=== PATIENT | female | born 1955 | race Caucasian/White ===

== ENCOUNTER → 2017-03-31 | Outpatient (CLI) | payer OTHER | LOC: BMCIMAGING 12:50 | PROVIDERS: ATTEND Internal Medicine | DX: Z12.31 Encounter for screening mammogram for malignant neoplasm of breast (principal) | CPT/HCPCS: G0202 ==

== ENCOUNTER 2017-04-30 11:27 | Emergency (ER) | payer OTHER ==
[2017-04-30 11:32] VITALS: TEMP 98.2
[2017-04-30] MEDS ORDERED: ONDANSETRON 4 MG/2 ML VIAL ONE (11:43)
--- NOTE | 2017-04-30 14:10 | EDPHY ---
General Narrative: CHIEF COMPLAINT: Foot swelling HISTORY OF PRESENT ILLNESS: Patient complains of 2 days history of pain at the base of the right toe and into the right great toe. This is sudden onset. Woke her from sleep. Constant duration. Moderate to severe by rest. Severe when she attempts to ambulate. Some improvement with tramadol that she had from previous prescription. Minimal improved with ibuprofen. No fever chills. No swelling of the entire foot. No swelling of the right ankle or calf. No redness of the right ankle or calf. No fever chills. No recent travel or surgery. No history of venous thrombolic event. She contacted her primary care physician, and they recommend that she present to the emergency department. REVIEW OF SYSTEMS: Ten systems reviewed and are negative unless otherwise noted in the HPI PAST MEDICAL HISTORY: Depression PAST SURGICAL HISTORY: None SOCIAL HISTORY: Nonsmoker. FAMILY HISTORY: Noncontributory EXAMINATION General Appearance: Alert, no distress Head: normocephalic, atraumatic Eyes: Pupils equal and round, no conjunctival pallor or injection ENT, Mouth: Mucous membranes moist Neck: Normal inspection, supple, non-tender Respiratory: Lungs are clear to auscultation. No wheezing rhonchi or crackles Cardiovascular: Regular rate and rhythm. No murmur. Pulses intact distally in symmetrically. Neurological: A&O, nonfocal, antalgic but normal gait. Strength is symmetric in all 4 limbs. Skin: Warm and dry, no rash. No erythema or cellulitis. No petechiae or purpura Extremities: Point tenderness at the base of the right great toe and into the MTP joint. There is some erythema and edema about the joint. No surrounding erythema or cellulitis. Range of motion is intact. No pain with passive dorsiflexion of the extremity. No edema of the right calf or leg. No asymmetry of the lower extremities. No evidence of DVT. Psychiatric: Mood and affect normal DIFFERENTIAL DIAGNOSES: Including but not limited to gout, metatarsalgia, arthralgia, sprain, DVT MDM: 2:05 p.m. Swelling and pain of the right MTP joint and toe. This is isolated to the right great toe MTP joint. No erythema of the foot or calf. No edema of the foot or calf. No evidence of DVT by examination or history. Treat symptomatic with medications as prescribed. Follow up with primary care physician for further care and testing. ER precautions discussed. Specifically return to ER for any redness, swelling or pain of the foot, ankle or calf. She is comfortable this plan and discharged home stable condition. - Diagnostics Imaging Results: Imaging Impressions Foot X-Ray 04/30/17 11:39 Impression: Negative. No fracture, arthropathy or bone lesion. - History Smoking Status: Never smoked - Objective Vital Signs: Initial Vital Signs Temperature (C) 98.2 F 04/30/17 11:29 Heart Rate 93 04/30/17 11:29 Respiratory Rate 18 04/30/17 11:29 Blood Pressure 157/93 H 04/30/17 11:29 O2 Sat (%) 96 04/30/17 11:29 O2 Delivery Mode Room Air Allergies/Adverse Reactions: No Known Allergies Allergy (Unverified 12/12/09 16:24) Home Medications: Medication Instructions Recorded Wellbutrin 12/12/09 Colchicine 0.6 mg PO AD #3 tablet 04/30/17 Hydrocodone/APAP 5/325 [[place] 1 - 2 tab PO Q4H PRN #10 tab 04/30/17 5/325 (*)] Indomethacin 75 mg PO DAILY #7 capsule.er 04/30/17 Departure - Departure Disposition: Home, Routine, Self-Care Clinical Impression: Pain of right great toe, Metatarsalgia of right foot Condition: Good Instructions: Low Purine Diet (ED), Gout (ED) Additional Instructions: 1. Weightbearing as tolerated 2. Medications as prescribed as needed 3. Follow up with primary care physician Referrals: Selma Patiño MD [Primary Care Provider] - As per Instructions Prescriptions: Colchicine 0.6 mg PO AD #3 tablet Hydrocodone/APAP 5/325 [[place] 5/325 (*)] 1 - 2 tab PO Q4H PRN #10 tab PRN Reason: Pain, Moderate Indomethacin 75 mg PO DAILY #7 capsule.er
[2017-04-30 14:46] VITALS: BP 126/77; PULSE 70; RESP 14; O2SAT 97
== END 2017-04-30 14:45 | disposition home or self-care (01) ==
DX: M77.41 Metatarsalgia, right foot (principal); M79.674 Pain in right toe(s)
CPT/HCPCS: J2405; L3260

== ENCOUNTER → 2017-05-01 | Outpatient (CLI) | payer OTHER | LOC: BMCIMAGING 10:51 | PROVIDERS: ATTEND Physician Assistant | DX: Z12.39 Encounter for other screening for malignant neoplasm of breast (principal); R92.8 Other abnormal and inconclusive findings on diagnostic imaging of breast | CPT/HCPCS: G0206 ==